=== PATIENT | male | born 1945 | race Caucasian/White ===

== ENCOUNTER → 2016-08-20 | Outpatient (CLI) | payer MEDICARE, OTHER ==
[~2016-08-20] MED LIST: AZULFIDINE ENT500 MG PO; CITALOPRAM HBR40 MG PO; HYDROCODON-ACE1 EACH PO; MELOXICAM15 MG PO; NAPROSYN-EC500 M1 PO; PRAVASTATIN SOD40 MG PO; PREDNISONE PO; RESTORIL15 MG PO; ROWASA 4 G4 G/60 ML/ RC
--- NOTE | ~2016-08-20 | US85 ---
[facility] A Service of [facility] RADIOLOGY TEXT RESULTS PATIENT: KENDELL SAMAYOA LOCATION: CNIV : 45 UNIT #: [id number] AGE: [address]: Mikayla Maya APRN SEX: M ORDER DR: [id number] [facility] [address] [facility]. [place], [place] [address] [id number] O MR#: [id number] Acc #: [id number] NAME: KENDELL SAMAYOA : 1945 SEX: M STUDY DATE/TIME: 08/20/2016 14:50 UNIT: CNIV ROOM: STUDY DESCRIPTION: [facility] Attending Physician: Mikayla Maya A.P.R.N. Referring Physician: Mikayla Maya A.P.R.N. Ordering Physician: Physician Non-Staff Primary Care Physician: Mikayla Maya A.P.R.N. MEDICAL IMAGING REPORT This report is preliminary unless electronic signature is present EXAM Left lower extremity venous duplex, 08/20/2016 HISTORY Left lower extremity pain and swelling for 3 weeks after head trauma, evaluate for deep vein thrombosis. TECHNIQUE Venous ultrasound examination of the left lower extremity was performed using grayscale, spectral Doppler and color flow Doppler imaging. FINDINGS The examination is negative. There is no evidence of left lower extremity deep venous thrombus from the groin to the lower calf. Visualized greater saphenous vein is also patent. IMPRESSION Negative examination. No evidence of left lower extremity deep venous thrombosis. Dictated by... Luther Ricks M.D. THIS IS AN ELECTRONICALLY VERIFIED REPORT Luther Ricks M.D. at 08/21/2016 6:07 AM RISHI/sue TD: 08/21/2016 02:13 JOB #: [id number] MEDICAL IMAGING REPORT COPY
== END | disposition home or self-care (01) ==
LOC: CNIV 14:12
DX: M79.89 Other specified soft tissue disorders (principal); M79.605 Pain in left leg; L53.9 Erythematous condition, unspecified
CPT/HCPCS: 93971